=== PATIENT | female | born 1955 | race Two or more races ===

== ENCOUNTER → 2018-11-15 | Emergency (ER) | payer OTHER ==
[~2018-11-15] VITALS: Ht 170.2 cm; Wt 83.9 kg
[~2018-11-15] MED LIST: COZAAR25 MG PO; MUPIROCIN15 GM TP; SMZ-TMP DS 800-1 TAB PO
== END | disposition left against medical advice (07) ==
LOC: ER 18:29
DX: Z53.20 Procedure and treatment not carried out because of patient's decision for unspecified reasons (principal)

== ENCOUNTER → 2019-11-11 | Outpatient (CLI) | payer OTHER | END | disposition home or self-care (01) | LOC: MAMO-SONO 15:02 | PROVIDERS: ATTEND Obstetrics & Gynecology | DX: Z12.31 Encounter for screening mammogram for malignant neoplasm of breast (principal); N60.11 Diffuse cystic mastopathy of right breast ==

== ENCOUNTER → 2021-01-02 | Outpatient (CLI) | payer OTHER | END | disposition home or self-care (01) | LOC: MAMO-SONO 09:00 | PROVIDERS: ATTEND Obstetrics & Gynecology | DX: N60.11 Diffuse cystic mastopathy of right breast (principal); Z12.31 Encounter for screening mammogram for malignant neoplasm of breast; Z87.898 Personal history of other specified conditions; N64.59 Other signs and symptoms in breast ==

== ENCOUNTER 2021-02-08 14:04 | Outpatient (CLI) | payer OTHER | END 2021-02-08 14:05 | disposition home or self-care (01) | LOC: NUCLEAR 14:04 | PROVIDERS: ATTEND Obstetrics & Gynecology | DX: M81.0 Age-related osteoporosis without current pathological fracture (principal) ==

== ENCOUNTER 2021-10-09 13:05 | Outpatient (CLI) | payer OTHER | END 2021-10-09 13:21 | disposition home or self-care (01) | LOC: MRI 13:05 | PROVIDERS: ATTEND Orthopaedic Surgery | DX: M25.551 Pain in right hip (principal); M25.552 Pain in left hip; M25.561 Pain in right knee; M25.562 Pain in left knee | CPT/HCPCS: 73718 ==

== ENCOUNTER → 2022-11-12 | Outpatient (CLI) | payer OTHER | END | disposition home or self-care (01) | LOC: RAD 09:23 | PROVIDERS: ATTEND Orthopaedic Surgery | DX: M25.561 Pain in right knee (principal); M25.562 Pain in left knee ==

== ENCOUNTER 2022-11-13 15:02 | Outpatient (CLI) | payer OTHER | END 2022-11-13 15:09 | disposition home or self-care (01) | LOC: MRI 15:02 | PROVIDERS: ATTEND Orthopaedic Surgery | DX: S83.201A Bucket-handle tear of unspecified meniscus, current injury, left knee, initial encounter (principal) | CPT/HCPCS: 73721 ==

== ENCOUNTER 2022-11-28 05:55 | Day surgery (SDC) | payer OTHER ==
[~2022-11-28] VITALS: Ht 170.2 cm; Wt 86.2 kg
[~2022-11-28 05:55] MED LIST changes: +TOPROL XL25 M1 PO
[2022-11-28] MEDS ORDERED: NEURONTIN300 MG PO (11:24)
[2022-11-28] MEDS ORDERED: PERCOCET 5-3251 EACH PO (11:24)
== END 2022-11-28 18:25 | disposition home or self-care (01) ==
LOC: CIR.AMB 05:55 → U 05:55 → CIR.AMB 08:45
PROVIDERS: ATTEND Surgery
DX: K64.8 Other hemorrhoids (principal); K62.5 Hemorrhage of anus and rectum; K63.89 Other specified diseases of intestine; K64.1 Second degree hemorrhoids; Z20.822 Contact with and (suspected) exposure to COVID-19

== ENCOUNTER 2024-09-01 09:59 | Emergency (ER) | payer OTHER ==
[~2024-09-01] VITALS: Ht 172.7 cm; Wt 86.2 kg
[~2024-09-01 09:59] MED LIST changes: +IRBESARTAN150 MG PO; +NEURONTIN300 MG PO; +PERCOCET 5-3251 EACH PO
[2024-09-01] MEDS ORDERED: KETOROLAC TROMETHAMINE 60 MG VIAL IM STA (12:58)
[2024-09-01] MEDS ORDERED: KETOROLAC TROMETHAMINE 60 MG VIAL IM ONE (13:06)
== END 2024-09-01 13:26 | disposition home or self-care (01) ==
LOC: ER 10:01
DX: G89.11 Acute pain due to trauma (principal); M25.511 Pain in right shoulder; M77.00 Medial epicondylitis, unspecified elbow
CPT/HCPCS: 96372; 99282; J1885

== ENCOUNTER 2024-09-03 10:28 | Outpatient (CLI) | payer OTHER | END 2024-09-03 10:31 | disposition home or self-care (01) | LOC: RAD 10:28 | PROVIDERS: ATTEND Orthopaedic Surgery | DX: M25.521 Pain in right elbow (principal) ==

== ENCOUNTER 2024-09-10 08:40 | Outpatient (CLI) | payer OTHER | END 2024-09-10 08:43 | disposition home or self-care (01) | LOC: RAD 08:40 | PROVIDERS: ATTEND Orthopaedic Surgery | DX: S52.134A Nondisplaced fracture of neck of right radius, initial encounter for closed fracture (principal); X58.XXXA Exposure to other specified factors, initial encounter; Y93.9 Activity, unspecified; Y92.9 Unspecified place or not applicable; Y99.9 Unspecified external cause status ==